=== PATIENT | male | born 1955 | race Caucasian/White ===

== ENCOUNTER 2024-08-23 08:16 | Day surgery (SDC) | payer OTHER ==
[2024-08-23] VITALS (10 sets, daily range): BP systolic 113–153; BP diastolic 56–92
[~2024-08-23] VITALS: Ht 167.6 cm; Wt 72.6 kg
[~2024-08-23 08:16] MED LIST: ACULAR5 ML; AMLO10 PO; ASPI81CH PO; ATOR80 PO; CARV3.125 PO; CELE200 PO; CLOP75 PO; DOCU100 PO; ENAL20; GLIP5ER PO; HYDACE5 PO; HYDCHL25 PO; LEVSOD25 PO; LISI20; LISI20 PO; Lisinopril-Hct1 EAC4 PO; MULVITMINF PO; OMEG1CAP30 PO; OMEP10ER PO; POLTRIOPSO OS; PRAZ2 PO; PRED FORTE5 ML BOTHEYES; PREG150 PO; SIMV80 PO; VARE1; Vitamin D1000 UNI1 PO
[2024-08-23] MEDS ORDERED: NS 1,000 ML IV ONE ×2 (09:11→09:12)
[2024-08-23] MEDS ORDERED: Nitroglycerin 2 MG/20 ML BTL ONE (09:11)
[2024-08-23] MEDS ORDERED: NS 500 ML IV ONE (09:11)
[2024-08-23] MEDS ORDERED: Heparin Sodium 1000 Units/ML 10ML MDV ONE ×2 (09:11→09:12)
[2024-08-23] MEDS ORDERED: FentaNYL Citrate 50 MCG/ML 2 ML Injection ONE (09:22)
[2024-08-23] MEDS ORDERED: Midazolam HCl 1MG / ML 2ML Vial ONE ×2 (09:22)
[2024-08-23] MEDS ORDERED: NS 100 ML IV ONE ×2 (11:05→11:11)
[2024-08-23] MEDS ORDERED: CeFAZolin Sodium 2,000 MG VIAL ONE (11:11)
[2024-08-23] MEDS ORDERED: Protamine Sulfate 50 MG Amp ONE ×2 (11:27→11:39)
--- NOTE | 2024-08-23 12:10 | NUR ---
PT BACK TO RECOVERY ROOM. SITTING UP IN RECLINER. PT GIVEN COFFEE AND SNACKS.ALERT AND ORIENTED X4. DRESSING TO L UPPPER ARM IS C/D/I. NO HEMATOMA.
--- NOTE | 2024-08-23 12:30 | NUR ---
PT GIVEN MORE SNACKS. UP TO BR, AMBUALTES WITHOUT DIFFICULTY.
--- NOTE | 2024-08-23 13:43 | NUR ---
PT VERBALIZE D/C INSTRUCTIONS. CALLS FATHER TO PICK HIM UP. PT DEMONSTRATES UNDERSTANDING OF L ARM PRECAUTIONS. IV D/C CATHETER INTACT.
--- NOTE | 2024-08-23 13:54 | NUR ---
PT WHEELED OUT OF DEPT. D/C FOLDER IN HANDS.
== END 2024-08-23 15:17 | disposition home or self-care (01) ==
LOC: MHTC 08:16
DX: I73.9 Peripheral vascular disease, unspecified (principal); I10 Essential (primary) hypertension; I25.2 Old myocardial infarction; F17.210 Nicotine dependence, cigarettes, uncomplicated; Z79.82 Long term (current) use of aspirin; Z79.1 Long term (current) use of non-steroidal anti-inflammatories (NSAID); Z79.02 Long term (current) use of antithrombotics/antiplatelets; Z79.899 Other long term (current) drug therapy; Z88.8 Allergy status to other drugs, medicaments and biological substances; Z86.73 Personal history of transient ischemic attack (TIA), and cerebral infarction without residual deficits
CPT/HCPCS: 37225; 75716; 75774; 76937; 99152; 99153; C1714; C1725; C1769; C1884; C1887; C1894; J0690; J1644; J2250; J2720; J3010; J7030; J7050; Q9967

== ENCOUNTER 2024-10-11 11:41 | Inpatient (IN) | payer OTHER ==
[~2024-10-11] VITALS: Ht 167.6 cm; Wt 72.6 kg
[~2024-10-11 11:41] MED LIST changes: -Lisinopril-Hct1 EAC4 PO; +ZESTORETIC 20-121 EA PO
[2024-10-11] MEDS ORDERED: Albuterol 2.5 MG/3 ML VIAL INH SCH (11:55)
[2024-10-11 12:22] LABS: BASOPHILS ABSOLUTE AUTO 0.03 K/mm3 (0.00-0.23); BASOPHILS PERCENT AUTO 0 % (0-2); EOSINOPHILS PERCENT AUTO 0 % (0-6); Hematocrit 42.5 % (37.0-53.0); Mean Corpuscular HGB 29.4 pg (26.0-34.0); Mean Corpuscular HGB Conc 32.9 g/dL (31.5-36.5); Mean Corpuscular Volume 89 fL (80-100); Mean Platelet Volume 11.8 fL (9.1-12.4); Platelet Count 117 K/mm3 (150-400); RDW Coefficient Variation 14.3 % (11.7-14.2); RDW Standard Deviation 46.9 fL (35.1-46.3); Red Blood Cell Count 4.77 M/mm3 (4.30-5.90); White Blood Cell Count 9.16 K/mm3 (4.00-11.30)
[2024-10-11 12:27] LABS: IMMATURE GRAN ABSOLUTE AUTO 0.07 K/mm3 (0.00-0.10); IMMATURE GRAN PERCENT AUTO 1 % (0-1); LYMPHOCYTES ABSOLUTE AUTO 1.37 K/mm3 (0.84-5.20); LYMPHOCYTES PERCENT AUTO 15 % (21-46); MONOCYTES ABSOLUTE AUTO 1.17 K/mm3 (0.16-1.47); MONOCYTES PERCENT AUTO 13 % (4-13); NEUTROPHILS ABSOLUTE AUTO 6.52 K/mm3 (1.96-9.15); NEUTROPHILS PERCENT AUTO 71 % (41-73)
[2024-10-11 12:32] LABS: Base Excess Venous 2.4 mmol/L; Bicarbonate Venous 25.2 mmol/L (24.0-30.0); PCO2 Venous 53.4 mmHg (38-42); pH Blood Venous 7.33 (7.34-7.37)
[2024-10-11 12:43] LABS: Albumin, Blood 3.2 g/dL (3.4-5.0); Albumin/Globulin Ratio 0.7 (0.8-1.8); Bilirubin, Total 0.5 mg/dL (0.1-1.0); Calcium, Blood 8.7 mg/dL (8.5-10.1); Creatinine, Blood 1.11 mg/dL (0.60-1.20); Globulin, Blood 4.5 g/dL (2.2-4.0); Magnesium, Blood 2.9 mg/dL (1.6-2.4); Potassium, Blood 4.1 mmol/L (3.5-5.5); Total Protein, Blood 7.7 g/dL (6.4-8.2)
[2024-10-11 12:50] LABS: BAND PERCENT MAN 3 % (0-8); BASOPHILS PERCENT MAN 0 % (0-2); EOSINOPHILS PERCENT MAN 0 % (0-6); LYMPHOCYTES % ATYPICAL MANUAL 1 % (0-0); LYMPHOCYTES PERCENT MAN 10 % (21-46); MONOCYTES ABSOLUTE MAN 1.19 K/mm3 (0.16-1.47); MONOCYTES PERCENT MAN 13 % (4-13); NEUTROPHILS ABSOLUTE MAN 6.96 K/mm3 (1.96-9.15); SEG NEUTROPHILS PERCENT MAN 73 % (41-73); TOTAL CELLS COUNTED 100
[2024-10-11 12:56] LABS: Influenza B, PCR NEGATIVE (NEGATIVE); Resp Syncytial Virus, PCR NEGATIVE (NEGATIVE); SARS-Cov-2 (COVID-19) PCR, MMC NEGATIVE (NEGATIVE)
[2024-10-11 13:01] LABS: Influenza A, PCR POSITIVE (NEGATIVE)
[2024-10-11] MEDS ORDERED: MethylPREDNISolone Sod Succ 125 MG Vial IV ONE (13:35)
[2024-10-11] MEDS ORDERED: Ipratropium/Albuterol SulF 2.5-0.5MG/3 ML Amp INH SCH (14:00)
[2024-10-11] MEDS ORDERED: FLU VACC TS2024-25(6MOS UP)/PF 45 MCG/0.5 ML SYRINGE IM SCH (14:00)
[2024-10-11] MEDS ORDERED: Albuterol 2.5 MG/3 ML VIAL INH PRN (14:10)
[2024-10-11] MEDS ORDERED: Benzonatate 100 MG Cap PO PRN (14:10)
[2024-10-11] MEDS ORDERED: Piperacillin/Tazobactam Sod 3.375 GM in NS 100 ML IV SCH (16:00)
[2024-10-11] MEDS ORDERED: Carvedilol 3.125 MG Tab PO SCH (17:00)
[2024-10-11] MEDS ORDERED: Azithromycin 250 MG Tab PO SCH (18:00)
[2024-10-11] MEDS ORDERED: NS 250 ML IV PRN ×2 (18:25→20:50)
[2024-10-11] MEDS ORDERED: MethylPREDNISolone Sod Succ 40 MG VIAL IV SCH (18:30)
[2024-10-11 18:50] VITALS: BP 124/69
--- NOTE | 2024-10-11 19:23 | NUR ---
NOTE PT A&OX4, BUT REPEATING HIMSELF. PT ON 8L VIA OX MASK. SPO2 IS 91%. GAVE REPORT TO NIGHT NURSE, LET NIGHT RN KNOW WAS UNABLE TO DO ADMISSION ASSESSMENT. DID QUICK 2RN CHECK WITH STEVE, PT HAS SOME REDDNESS ON BOTTOM, PT REPORTS BEING IN BED FOR A WEEK DUE TO EXAUSTED FROM BEING SICK. PT ON CONT. PULSE OX. PT HAS HUMIDIFIED O2. PT ORIENTED TO CALL LIGHT AND FLOOR. PT STATES BEING DIZZY BUT ABLE TO STAND AND TRANSFER SELF TO BED. PT STATES HAVING LOST PERSONAL ITEMS COMING FROM [facility] CALLED ER, THEY STATED DID NOT HAVE PERSONAL ITEMS OF PT, REPORTED IT TO NIGHT RN. PT ON HEART HEALTHY DIET. PT BED IN LOWEST POSITION. CALL LIGHT IN REACH.
[2024-10-11 19:53] VITALS: BP 108/83
[2024-10-11] MEDS ORDERED: CLOP75 PO (19:58)
[2024-10-11] MEDS ORDERED: OCUFLOX511 BOTHEYES (20:03)
[2024-10-11] MEDS ORDERED: KETO.5OPSO BOTHEYES (20:04)
[2024-10-11] MEDS ORDERED: Docusate Sodium 100 MG Cap PO SCH (21:00)
[2024-10-11] MEDS ORDERED: MethylPREDNISolone Sod Succ 125 MG Vial IV SCH (21:00)
[2024-10-11] MEDS ORDERED: Pregabalin 75 MG Cap PO SCH (21:00)
[2024-10-11] MEDS ORDERED: Celecoxib 100 MG Cap PO SCH (21:00)
[2024-10-11] MEDS ORDERED: Oseltamivir Phosphate 75 MG Cap PO SCH (21:00)
[2024-10-11] MEDS ORDERED: GuaiFENesin 600 MG TabCR PO SCH (21:00)
--- NOTE | 2024-10-11 22:21 | NUR ---
ADMIT NOTE 68 YR OLD MALE WAS ADMITTED TO FLOOR FROM THE ED WITH DX OF ACUTE HYPOXIC RESP FAILURE ON PREVIOUS SHIFT. ALERT AND ORIENTED X 4. COOPERATIVE. LUNG SOUNDS DIMINISHED AND CONGESTED COUGH. WAS PLACED ON DROPLET PRECAUTIONS FOR FLU AND PNA, AM RN REPORTED THAT PT HAD HAD COVID NOT TOO LONG AGO WELL. IV ANTIBIOTICS INFUSING. PT VOICED HE HAD LOST BELONGINGS WHEN BEING [facility]. (AM RN REPORTED SAID BELONGINGS WERE BEING SEARCHED FOR). ORIENTED TO USE OF CALL LIGHT. RAILS UP X 2 AND BED IN LOW POSITION, CALL LIGHT IN REACH FOR SAFETY. WILL CONT TO MONITOR
--- NOTE | 2024-10-12 03:38 | NUR ---
PRESS OPERATOR HELPER SUMMARY VSS. LUNG SOUNDS DIMINISHED TO AUSCULTATION, INTERMITTENT CONGESTED COUGHING. IV ANTIBIOTICS INFUSING. PT ON DROPLET PRECAUTIONS FOR FLU AND PNEUMONIA. TOLERATED PO TAMIFLU TO TREAT THE FLU. HOB ELEVATED FOR RESP COMFORT. ABLE TO REPOSITION SELF IN BED WITHOUT ASSIST. O2 PER MASK AT 5L/MIN. CONT PULSE OX IN USE. HAS BEEN RESTING QUIETLY WITH FEW INTERRUPTIONS SINCE MEDS ADMIN. CALL LIGHT IN REACH, RAILS UP X 2 AND BED IN LOW POSITION FOR SAFETY. WILL CONT TO MONITOR.
[2024-10-12 03:59] VITALS: BP 119/73
[2024-10-12] MEDS ORDERED: Pantoprazole Sodium 20 MG Tab PO SCH (06:00)
[2024-10-12 06:31] LABS: Hematocrit 42.8 % (37.0-53.0); Hemoglobin 13.9 g/dL (13.5-17.5); Mean Corpuscular HGB 29.8 pg (26.0-34.0); Mean Corpuscular HGB Conc 32.5 g/dL (31.5-36.5); Mean Corpuscular Volume 92 fL (80-100); Mean Platelet Volume 12.1 fL (9.1-12.4); Platelet Count 117 K/mm3 (150-400); RDW Coefficient Variation 14.6 % (11.7-14.2); Red Blood Cell Count 4.66 M/mm3 (4.30-5.90)
[2024-10-12 06:50] LABS: Bun/Creatinine Ratio 36.2 (12.0-20.0); Calcium, Blood 8.5 mg/dL (8.5-10.1); Creatinine, Blood 1.16 mg/dL (0.60-1.20); Potassium, Blood 4.5 mmol/L (3.5-5.5)
[2024-10-12 07:29] VITALS: BP 122/65
[2024-10-12] MEDS ORDERED: Clopidogrel Bisulfate 75 MG Tab PO SCH (09:00)
[2024-10-12] MEDS ORDERED: Atorvastatin 40 MG Tab PO SCH (09:00)
[2024-10-12] MEDS ORDERED: Aspirin 81 MG Chew PO SCH (09:00)
[2024-10-12] MEDS ORDERED: Enoxaparin 40 MG/0.4 ML SYR SC SCH (09:00)
[2024-10-12] MEDS ORDERED: HydroCHLOROthiazide 25 mg Tab PO SCH (09:00)
[2024-10-12] MEDS ORDERED: Lisinopril 20 MG Tab PO SCH (09:00)
[2024-10-12] MEDS ORDERED: Cholecalciferol 1000 Unit Tablet (=25MCG) PO SCH (09:00)
[2024-10-12] MEDS ORDERED: AmLODIPine Besylate 5 MG Tab PO SCH (09:00)
[2024-10-12 15:17] VITALS: BP 101/81
[2024-10-12 16:46] VITALS: BP 97/56
[2024-10-12] MEDS ORDERED: Pantoprazole Sodium 20 MG Tab PO ONE (18:10)
--- NOTE | 2024-10-12 18:31 | NUR ---
SHIFT SUMMARY MR ALAN IS OX4, CALLS APPROPRIATELY, APPROPRIATE CONVERSATION. HE WAS CONCERNED ABOUT MISSING PERSONAL BELONGINGS WHICH ARE NOW LOCATED. DRY COUGH. ON 7L HIGH FLOW NC ON CONTINUOUS PULSE OX IN THE LOW 90S. HE IS A SMOKER AND HAS REQUESTED A NICOTENE PATCH, DR SINGH AWARE. C/O GI UPSET, GIVEN PROTONIX PO. NO NAUSEA. REPOSITIONING SELF AT LEAST Q2HRS, PILLOWS PROVIDED. BED LOW, CALL LIGHT IN REACH.
[2024-10-12 19:23] VITALS: BP 84/74
[2024-10-12 21:19] LABS: Base Excess Venous 1.5 mmol/L; Bicarbonate Venous 24.6 mmol/L (24.0-30.0); PCO2 Venous 56.9 mmHg (38-42)
[2024-10-13 05:18] VITALS: BP 111/63
[2024-10-13 05:25] LABS: Hematocrit 39.7 % (37.0-53.0); Hemoglobin 12.8 g/dL (13.5-17.5); Mean Corpuscular HGB 29.6 pg (26.0-34.0); Mean Corpuscular HGB Conc 32.2 g/dL (31.5-36.5); Mean Corpuscular Volume 92 fL (80-100); Mean Platelet Volume 12.5 fL (9.1-12.4); Platelet Count 157 K/mm3 (150-400); RDW Coefficient Variation 14.6 % (11.7-14.2); RDW Standard Deviation 49.6 fL (35.1-46.3); Red Blood Cell Count 4.32 M/mm3 (4.30-5.90); White Blood Cell Count 15.28 K/mm3 (4.00-11.30)
[2024-10-13 05:56] LABS: Bun/Creatinine Ratio 38.5 (12.0-20.0); Calcium, Blood 9.2 mg/dL (8.5-10.1); Creatinine, Blood 1.69 mg/dL (0.60-1.20); Potassium, Blood 4.8 mmol/L (3.5-5.5)
--- NOTE | 2024-10-13 07:20 | NUR ---
SHIFT SUMMARY; PATIENT SLEPT IN SHORT INTERVALS, AWAKE WITH HEARTBURN. AND COUGHING SPELLS. PRN TESSLON PERLS GIVEN. HYPOTENSIVE. UP TO BR W/SB/WW FOR BM. REMAINS IN DROPLET ISLATION.
[2024-10-13 07:55] VITALS: BP 98/57
[2024-10-13] MEDS ORDERED: Furosemide 10 MG / ML 2ML Vial IV SCH (09:00)
[2024-10-13 15:41] VITALS: BP 103/56
[2024-10-13 19:39] VITALS: BP 108/68
[2024-10-14 03:58] VITALS: BP 131/82
[2024-10-14 05:29] LABS: Hematocrit 38.7 % (37.0-53.0); Hemoglobin 12.9 g/dL (13.5-17.5); Mean Corpuscular HGB 29.9 pg (26.0-34.0); Mean Corpuscular HGB Conc 33.3 g/dL (31.5-36.5); Mean Corpuscular Volume 90 fL (80-100); Platelet Count 178 K/mm3 (150-400); RDW Coefficient Variation 14.7 % (11.7-14.2); Red Blood Cell Count 4.32 M/mm3 (4.30-5.90); White Blood Cell Count 15.65 K/mm3 (4.00-11.30)
--- NOTE | 2024-10-14 05:52 | NUR ---
INTENSIVE CARE MEDICINE SPECIALIST SUMMARY PT A/OX4. ABLE TO MAKE NEEDS KNOWN. PT VERBALLY EXPRESSING HE WANTS TO GO HOME. RT TITRATED OXYGEN DOWN TO 4LPM AT START OF SHIFT. PT TOLERATED T/O THE NIGHT, SATURATIONS AVERAGED BETWEEN 88-92%; BRIEF DIPS TO 86% WITH ACTIVITY. NO ACUTE CHANGES. PT HAS BEEN WAKEFUL T/O THE NIGHT. CALL LIGHT ACCESSIBLE. CARE WILL CONTINUE UNTIL REPORT GIVEN TO ONCOMING NURSE.
[2024-10-14 05:57] LABS: Bun/Creatinine Ratio 46.4 (12.0-20.0); Calcium, Blood 9.1 mg/dL (8.5-10.1); Creatinine, Blood 1.12 mg/dL (0.60-1.20); Magnesium, Blood 2.4 mg/dL (1.6-2.4); Phosphorus, Blood 1.9 mg/dL (2.5-4.9); Potassium, Blood 4.4 mmol/L (3.5-5.5)
[2024-10-14 07:15] VITALS: BP 134/77
[2024-10-14] MEDS ORDERED: Amoxicillin/Clavulanate K 875 MG Tab PO SCH (09:00)
[2024-10-14] MEDS ORDERED: ALBU90OI INH (13:09)
[2024-10-14] MEDS ORDERED: AMOCLA875 PO (13:10)
[2024-10-14] MEDS ORDERED: AZIT500 PO (13:11)
[2024-10-14] MEDS ORDERED: FLUTICASONE-SA1 EAC1 INH (13:12)
[2024-10-14] MEDS ORDERED: OSEL75CA PO (13:13)
[2024-10-14] MEDS ORDERED: KETO.5OPSO BOTHEYES (13:13)
[2024-10-14] MEDS ORDERED: PRED20 (13:15)
--- NOTE | 2024-10-14 15:22 | NUR ---
DISCHARGE SUMMARY PT DC THIS SHIFT DC INSTRUCTION GONE OVER WITH PT AND PT FATHER. WHOM STATED UNDERSTANDING. PT DC HOME WITH HOME HEALTH AND OXYGEN. PT ESCORTED OUT TO PRIVATE VEHICLE VIA WHEELCHAIR BY TJ
== END 2024-10-14 15:12 | disposition home health service (06) | DRG 871 ==
LOC: ER 11:41 → MEDS 13:55 → ERHOLD 13:55 → MEDS 18:43
PROVIDERS: Emergency Medicine; Hospitalist; ADMIT Internal Medicine
DX: A41.9 Sepsis, unspecified organism (principal); J10.08 Influenza due to other identified influenza virus with other specified pneumonia; J18.9 Pneumonia, unspecified organism; J69.0 Pneumonitis due to inhalation of food and vomit; J96.01 Acute respiratory failure with hypoxia; J44.0 Chronic obstructive pulmonary disease with (acute) lower respiratory infection; J44.1 Chronic obstructive pulmonary disease with (acute) exacerbation; E87.1 Hypo-osmolality and hyponatremia; I69.354 Hemiplegia and hemiparesis following cerebral infarction affecting left non-dominant side; R65.20 Severe sepsis without septic shock; I12.9 Hypertensive chronic kidney disease with stage 1 through stage 4 chronic kidney disease, or unspecified chronic kidney disease; K21.9 Gastro-esophageal reflux disease without esophagitis; I25.10 Atherosclerotic heart disease of native coronary artery without angina pectoris; G89.4 Chronic pain syndrome; E55.9 Vitamin D deficiency, unspecified; I73.9 Peripheral vascular disease, unspecified; N18.30 Chronic kidney disease, stage 3 unspecified; E78.5 Hyperlipidemia, unspecified; R79.1 Abnormal coagulation profile; Z96.641 Presence of right artificial hip joint; F17.210 Nicotine dependence, cigarettes, uncomplicated; Z88.8 Allergy status to other drugs, medicaments and biological substances; I69.311 Memory deficit following cerebral infarction; Z86.16 Personal history of COVID-19; Z79.82 Long term (current) use of aspirin; Z79.02 Long term (current) use of antithrombotics/antiplatelets; Z79.1 Long term (current) use of non-steroidal anti-inflammatories (NSAID); Z95.820 Peripheral vascular angioplasty status with implants and grafts; I25.2 Old myocardial infarction; Z87.820 Personal history of traumatic brain injury; Z60.2 Problems related to living alone
CPT/HCPCS: 0241U; 36415; 71045; 71260; 80048; 80053; 82803; 83605; 83735; 83880; 84100; 84145; 84484; 85025; 85027; 85379; 87040; 92610; 93005; 93010; 94640; 94644; 94664; 94760; 94761; 94762; 97110; 97116; 97161; 97165; 99285-25; A9270; J1650; J1940; J2470; J2543; J2919; J7050; Q9967

== ENCOUNTER 2025-01-19 10:40 | Inpatient (IN) | payer OTHER ==
[~2025-01-19] VITALS: Ht 167.6 cm; Wt 68.4 kg
[~2025-01-19 10:40] MED LIST changes: +ALBU90OI INH; +AMOCLA875 PO; +AZIT500 PO; +FLUTICASONE-SA1 EAC1 INH; +KETO.5OPSO BOTHEYES; +OCUFLOX511 BOTHEYES; +OSEL75CA PO; +PRED20
[2025-01-19] MEDS ORDERED: Ipratropium Bromide INH 0.02% 0.5 mg/2.5ML Vial INH SCH (11:05)
[2025-01-19] MEDS ORDERED: Albuterol 2.5 MG/3 ML VIAL INH SCH (11:05)
[2025-01-19 11:15] LABS: BASOPHILS ABSOLUTE AUTO 0.07 K/mm3 (0.00-0.23); BASOPHILS PERCENT AUTO 0 % (0-2); EOSINOPHILS ABSOLUTE AUTO 0.09 K/mm3 (0.00-0.68); EOSINOPHILS PERCENT AUTO 1 % (0-6); Hematocrit 48.1 % (37.0-53.0); Hemoglobin 15.6 g/dL (13.5-17.5); IMMATURE GRAN ABSOLUTE AUTO 0.09 K/mm3 (0.00-0.10); IMMATURE GRAN PERCENT AUTO 1 % (0-1); LYMPHOCYTES ABSOLUTE AUTO 2.01 K/mm3 (0.84-5.20); LYMPHOCYTES PERCENT AUTO 12 % (21-46); MONOCYTES ABSOLUTE AUTO 1.68 K/mm3 (0.16-1.47); MONOCYTES PERCENT AUTO 10 % (4-13); Mean Corpuscular HGB 30.1 pg (26.0-34.0); Mean Corpuscular HGB Conc 32.4 g/dL (31.5-36.5); Mean Corpuscular Volume 93 fL (80-100); Mean Platelet Volume 11.2 fL (9.1-12.4); NEUTROPHILS ABSOLUTE AUTO 12.31 K/mm3 (1.96-9.15); NEUTROPHILS PERCENT AUTO 76 % (41-73); Platelet Count 201 K/mm3 (150-400); RDW Coefficient Variation 13.8 % (11.7-14.2); RDW Standard Deviation 46.8 fL (35.1-46.3); Red Blood Cell Count 5.19 M/mm3 (4.30-5.90); White Blood Cell Count 16.25 K/mm3 (4.00-11.30)
[2025-01-19 11:38] LABS: Influenza A, PCR NEGATIVE (NEGATIVE); Influenza B, PCR NEGATIVE (NEGATIVE); Resp Syncytial Virus, PCR NEGATIVE (NEGATIVE); SARS-Cov-2 (COVID-19) PCR, MMC NEGATIVE (NEGATIVE)
[2025-01-19] MEDS ORDERED: MethylPREDNISolone Sod Succ 125 MG Vial IV ONE (12:50)
[2025-01-19 13:56] LABS: Albumin, Blood 3.6 g/dL (3.4-5.0); Albumin/Globulin Ratio 0.8 (0.8-1.8); Bilirubin, Total 0.4 mg/dL (0.1-1.0); Bun/Creatinine Ratio 24.6 (12.0-20.0); Calcium, Blood 9.5 mg/dL (8.5-10.1); Creatinine, Blood 0.98 mg/dL (0.60-1.20); Globulin, Blood 4.3 g/dL (2.2-4.0); Potassium, Blood 4.4 mmol/L (3.5-5.5); Total Protein, Blood 7.9 g/dL (6.4-8.2)
[2025-01-19] MEDS ORDERED: Ondansetron 4 MG TAB PO PRN (15:40)
[2025-01-19] MEDS ORDERED: Magnesium Hydroxide Conc 10 ML UDC PO PRN (15:40)
[2025-01-19] MEDS ORDERED: TraZODone HCl 50 MG Tab PO PRN (15:40)
[2025-01-19] MEDS ORDERED: Lactated Ringer's 1,000 ML IV SCH (15:40)
[2025-01-19] MEDS ORDERED: Bisacodyl 10 MG Supp PR PRN (15:45)
[2025-01-19] MEDS ORDERED: Albuterol 2.5 MG/3 ML VIAL INH PRN (15:45)
[2025-01-19] MEDS ORDERED: Ipratropium/Albuterol SulF 2.5-0.5MG/3 ML Amp INH SCH (15:45)
[2025-01-19] MEDS ORDERED: NS 1,000 ML IV SCH (15:50)
[2025-01-19] MEDS ORDERED: Mometasone/Formoterol MDI 200/5 mcg 13 GM INH SCH (15:55)
[2025-01-19] MEDS ORDERED: CefTRIAXone Sodium 2,000 MG in NS 100 ML IV SCH (16:00)
[2025-01-19] MEDS ORDERED: Carvedilol 3.125 MG Tab PO SCH (17:00)
[2025-01-19 18:12] VITALS: BP 143/65
[2025-01-19] MEDS ORDERED: Benzonatate 100 MG Cap PO PRN (18:35)
[2025-01-19 19:30] VITALS: BP 128/64
[2025-01-19] MEDS ORDERED: Pregabalin 75 MG Cap PO SCH (21:00)
[2025-01-19] MEDS ORDERED: Lactobacil 2-S.Thermo-Bifido 1 1 Cap PO SCH (21:00)
[2025-01-19] MEDS ORDERED: Famotidine 20 MG Tab PO SCH (21:00)
[2025-01-19] MEDS ORDERED: Montelukast Sodium 10 MG Tab PO SCH (21:00)
[2025-01-19] MEDS ORDERED: Nicotine 21 MG PATCH TOP SCH (21:00)
[2025-01-19] MEDS ORDERED: Docusate Sodium 100 MG Cap PO SCH (21:00)
[2025-01-19] MEDS ORDERED: MethylPREDNISolone Sod Succ 125 MG Vial IV SCH (22:00)
[2025-01-20 02:56] VITALS: BP 127/72
--- NOTE | 2025-01-20 04:02 | NUR ---
SHIFT SUMMARY PATIENT HAD NO ACUTE CHANGES. ALERT ORIENTED AND SBA TO BSC. SOB W/EXERTION. ON 4L O2 NC AND RA BASELINE. PIV INTACT. NS INFUSING @ 100 mL/HR X ONE BAG. TESSALON 100 MG GIVEN FOR COUGH WITH GOOD EFFECT. DENIES CHEST PAIN AND N/V. RT IN FOR BREATHING TX. CALL LIGHT IN REACH. BED IN LOWEST POSITION. WILL CONTINUE TO MONITOR UNTIL DAY SHIFT NURSE ASSUMES CARE
[2025-01-20 05:52] LABS: Hematocrit 42.9 % (37.0-53.0); Hemoglobin 13.7 g/dL (13.5-17.5); Mean Corpuscular HGB 29.5 pg (26.0-34.0); Mean Corpuscular HGB Conc 31.9 g/dL (31.5-36.5); Mean Corpuscular Volume 93 fL (80-100); Mean Platelet Volume 11.3 fL (9.1-12.4); Platelet Count 178 K/mm3 (150-400); RDW Coefficient Variation 13.8 % (11.7-14.2); RDW Standard Deviation 46.6 fL (35.1-46.3); Red Blood Cell Count 4.64 M/mm3 (4.30-5.90); White Blood Cell Count 12.24 K/mm3 (4.00-11.30)
[2025-01-20 06:19] LABS: Albumin, Blood 2.8 g/dL (3.4-5.0); Albumin/Globulin Ratio 0.8 (0.8-1.8); Bilirubin, Total 0.2 mg/dL (0.1-1.0); Bun/Creatinine Ratio 29.4 (12.0-20.0); Calcium, Blood 8.9 mg/dL (8.5-10.1); Creatinine, Blood 0.78 mg/dL (0.60-1.20); Globulin, Blood 3.7 g/dL (2.2-4.0); Magnesium, Blood 2.2 mg/dL (1.6-2.4); Potassium, Blood 4.3 mmol/L (3.5-5.5); Total Protein, Blood 6.5 g/dL (6.4-8.2)
[2025-01-20 07:43] VITALS: BP 128/71
[2025-01-20] MEDS ORDERED: Aspirin 81 MG Chew PO SCH (09:00)
[2025-01-20] MEDS ORDERED: AmLODIPine Besylate 5 MG Tab PO SCH (09:00)
[2025-01-20] MEDS ORDERED: Clopidogrel Bisulfate 75 MG Tab PO SCH (09:00)
[2025-01-20] MEDS ORDERED: Enoxaparin 40 MG/0.4 ML SYR SC SCH (09:00)
[2025-01-20] MEDS ORDERED: Atorvastatin 40 MG Tab PO SCH (09:00)
--- NOTE | 2025-01-20 10:46 | NUR ---
AM NOTE: PATIENT A/OX4, MAKE NEEDS KNOWN, PLEASANT AND COOPERATIVE c CARE. PATIENT ON MINCED AND MOIST DIET. PATIENT REPORTS HX OF CVA, HE HAS BEEN EATING REGULAR TEXTURE DIET AT HOME c NO PROBLEM SWALLOWING HIS FOOD. PATIENT EXPRESSESS HE DOES NOT LIKE HIS CURRENT TEXTURE DIET HERE IN THE HOSPITAL AND REQUESTING CHANGED TO REGULAR DIET TEXTURE. NOTIFIED DR. TOÑO barriga PATIENT REQUEST. RECEIVED ORDER FOR ST COLT.
[2025-01-20 14:52] VITALS: BP 137/62
[2025-01-20 17:30] VITALS: BP 140/65
[2025-01-20] MEDS ORDERED: NS 250 ML IV PRN (17:55)
--- NOTE | 2025-01-20 18:49 | NUR ---
SHIFT SUMMARY: NO ACUTE CHANGES T/O THIS SHIFT. PATIENT IS A&OX4, CALM, PLEASANT AND COOPERATIVE c CARE. PATIENT VERBALIZES NEEDS AND CALLS APPROPRIATELY. PATIENT REPORTS NO DIZZINESS OR HEADACHES EVEN WHEN AMBULATING. PATIENT NOT ON TELE, DENIES CHEST PAIN/PRESSURE. PATIENT IS ON 4 LITERS NC AND IS SATTING BETWEEN 89-92%. PATIENT HAS A PRODUCTIVE COUGH AND IS COUGHING UP SMALL AMOUNT OF MUCUS. TOLERATES REGULAR DIET. PATIENT IS CONTINENT OF BLADDER/BOWEL, REPORTS NO DISCOMFORT OR PAIN IN ABDOMEN. PATIENT DENIES N/V, AND LAST BM WAS TODAY AFTER HIS SHOWER. PATIENT AMBULATES TO [facility] A [facility]BA DUE TO DYSPNEA W/EXERTION. L AC INFUSING ABX, SCHEDULED MEDS GIVEN PER EMAR. BED IN LOWEST POSITION AND CALL LIGHT IN REACH.
[2025-01-20 19:17] VITALS: BP 123/59
[2025-01-21 04:12] VITALS: BP 134/81
--- NOTE | 2025-01-21 05:26 | NUR ---
SHIFT SUMMARY PT WEANED FROM 4LNC TO 2LNC. CONTINUOUS PULSE OX IN PLACE WITH O2 SATS WNL. PT WITH HACKING COUGH, STILL NEED SPUTUM SAMPLE. PT SOB WITH ACTIVITY, BUT STATES HE FEELS IMPROVED SINCE ADMIT. PT SLEPT INTERMITTENTLY DURING THE NIGHT. BED IN LOWEST POSITION, CALL LIGHT WITHIN REACH, SIDERAILS UP X2.
[2025-01-21 05:52] LABS: BASOPHILS ABSOLUTE AUTO 0.05 K/mm3 (0.00-0.23); BASOPHILS PERCENT AUTO 0 % (0-2); EOSINOPHILS PERCENT AUTO 0 % (0-6); Hematocrit 41.5 % (37.0-53.0); Hemoglobin 13.3 g/dL (13.5-17.5); IMMATURE GRAN ABSOLUTE AUTO 0.44 K/mm3 (0.00-0.10); IMMATURE GRAN PERCENT AUTO 2 % (0-1); LYMPHOCYTES ABSOLUTE AUTO 1.07 K/mm3 (0.84-5.20); LYMPHOCYTES PERCENT AUTO 5 % (21-46); MONOCYTES ABSOLUTE AUTO 0.78 K/mm3 (0.16-1.47); MONOCYTES PERCENT AUTO 4 % (4-13); Mean Corpuscular HGB 30.2 pg (26.0-34.0); Mean Corpuscular Volume 94 fL (80-100); Mean Platelet Volume 11.1 fL (9.1-12.4); NEUTROPHILS ABSOLUTE AUTO 18.78 K/mm3 (1.96-9.15); NEUTROPHILS PERCENT AUTO 89 % (41-73); Platelet Count 227 K/mm3 (150-400); RDW Coefficient Variation 13.8 % (11.7-14.2); RDW Standard Deviation 48.1 fL (35.1-46.3); White Blood Cell Count 21.12 K/mm3 (4.00-11.30)
[2025-01-21 06:13] LABS: Calcium, Blood 9.1 mg/dL (8.5-10.1); Creatinine, Blood 0.91 mg/dL (0.60-1.20); Potassium, Blood 4.8 mmol/L (3.5-5.5)
[2025-01-21 07:40] VITALS: BP 160/79
[2025-01-21 15:22] VITALS: BP 140/73
--- NOTE | 2025-01-21 18:25 | NUR ---
SHIFT SUMMARY PT A&OX4. PT ADMITTED DUE TO ACUTE HYPOXIC RESP FAILURE. PT HAS PRODUCTIVE COUGH. PT RECEIVED DOSE OF TESSLON PRN FOR COUGH. SPUTUM COLLECTION COLLECTED AND PENDING RESULTS. RESPIRATORY THERAPY INVOLVED IN CARE. PT HAS CONT PULSE OX ON. SATS ARE 90% ON 1L OF O2 VIA N/C. ORAL CARE COMPLETE. VSS. PT GOT IV ANTIBIOTIC. PT UPRIGHT FOR PO INTAKE. PT EDUCATED ON INCENTIVE SPIROMETER USE. PT PERFORMED PROPER USE OF INCENTIVE SPIROMETER. INCENTIVE SPIROMETER AT BEDSIDE. PT IN BED, BED IN LOWEST POSITION, CALL LIGHT IN REACH. VSS.
[2025-01-21 19:40] VITALS: BP 136/72
[2025-01-21] MEDS ORDERED: MethylPREDNISolone Sod Succ 125 MG Vial IV SCH (21:00)
[2025-01-22] MEDS ORDERED: Saline Nasal Spray 45 ML PRN (00:15)
[2025-01-22 03:55] VITALS: BP 138/78
--- NOTE | 2025-01-22 05:43 | NUR ---
SHIFT SUMMARY PT SLEPT POORLY THIS SHIFT. O2 NEEDS INCREASED AT START OF SHIFT- O2 INCREASED FROM 1 TO 3L NC AT 2100. ABLE TO WEAN PT BACK TO 1 LITER DURING THE NIGHT. PT C/O NASAL CONGESTION- ORDER RECEIVED FOR SALINE NASAL SPRAY, MEDICATED PER EMAR. HACKING COUGH CONTINUES- TESSLON MARCO GIVEN PER EMAR. BED IN LOWEST POSITION, CALL LIGHT WITHIN REACH, SIDERAILS UP X2.
[2025-01-22 08:05] VITALS: BP 153/77
[2025-01-22] MEDS ORDERED: Metoprolol Succinate 25 MG TABCR PO SCH (09:00)
[2025-01-22] MEDS ORDERED: Lisinopril 20 MG Tab PO SCH (13:00)
[2025-01-22] MEDS ORDERED: Metoprolol Succinate 25 MG TABCR PO ONE (13:00)
[2025-01-22 13:53] VITALS: BP 132/63
[2025-01-22 15:48] VITALS: BP 124/78
[2025-01-22] MEDS ORDERED: CefTRIAXone Sodium 1,000 MG in NS 100 ML IV SCH (18:00)
[2025-01-22 19:11] VITALS: BP 110/71
--- NOTE | 2025-01-22 19:29 | NUR ---
SHIFT SUMMARY PT A&OX4 PT ADMITTED DUE TO ACUTE HYPOXIC RESP FAILURE. PT HAS PRODUCTIVE COUGH, PT REPORTS NO PAIN. RESPIRATORY THERAPY INVOLVED IN CARE. PT HAS CONT PULSE OX ON. PT ON 1L ON O2 VIA N/C SPO2 91%. ORAL CARE COMPLETE. VSS. PT GOT IV ANTIBIOTIC. PT UPRIGHT FOR PO INTAKE.INCENTIVE SPIROMETER AT BEDSIDE. PT IN BED, BED IN LOWEST POSITION, CALL LIGHT IN REACH, PLAN FOR OXIMETER (SLEEP) ORDERED TONIGHT.
[2025-01-23 02:57] VITALS: BP 140/67
--- NOTE | 2025-01-23 05:47 | NUR ---
SHIFT SUMMARY PT WEANED FROM 1L TO RA PER RESPIRATORY THERAPY WHEN STARTING SLEEP STUDY. PT DENIES FEELING SOB. SLEPT INTERMITTENTLY DURING SLEEP STUDY. LUNGS CONTINUE TO HAVE EXP WHEEZES, BUT COUGH IS LESS FREQUENT TONIGHT. BED IN LOWEST POSITION, CALL LIGHT WITHIN REACH, SIDERAILS UP X2.
[2025-01-23 06:23] LABS: BASOPHILS ABSOLUTE AUTO 0.12 K/mm3 (0.00-0.23); BASOPHILS PERCENT AUTO 1 % (0-2); EOSINOPHILS PERCENT AUTO 0 % (0-6); Hematocrit 44.8 % (37.0-53.0); Hemoglobin 14.1 g/dL (13.5-17.5); IMMATURE GRAN ABSOLUTE AUTO 1.36 K/mm3 (0.00-0.10); IMMATURE GRAN PERCENT AUTO 7 % (0-1); LYMPHOCYTES ABSOLUTE AUTO 1.53 K/mm3 (0.84-5.20); LYMPHOCYTES PERCENT AUTO 7 % (21-46); MONOCYTES ABSOLUTE AUTO 0.88 K/mm3 (0.16-1.47); MONOCYTES PERCENT AUTO 4 % (4-13); Mean Corpuscular HGB 29.7 pg (26.0-34.0); Mean Corpuscular HGB Conc 31.5 g/dL (31.5-36.5); Mean Corpuscular Volume 95 fL (80-100); Mean Platelet Volume 10.7 fL (9.1-12.4); NEUTROPHILS ABSOLUTE AUTO 17.07 K/mm3 (1.96-9.15); NEUTROPHILS PERCENT AUTO 81 % (41-73); Platelet Count 245 K/mm3 (150-400); RDW Coefficient Variation 14.1 % (11.7-14.2); RDW Standard Deviation 49.6 fL (35.1-46.3); Red Blood Cell Count 4.74 M/mm3 (4.30-5.90); White Blood Cell Count 20.96 K/mm3 (4.00-11.30)
[2025-01-23 06:43] LABS: BAND PERCENT MAN 4 % (0-8); BASOPHILS PERCENT MAN 0 % (0-2); Bun/Creatinine Ratio 30.7 (12.0-20.0); Calcium, Blood 9.5 mg/dL (8.5-10.1); Creatinine, Blood 0.85 mg/dL (0.60-1.20); EOSINOPHILS PERCENT MAN 0 % (0-6); LYMPHOCYTES ABSOLUTE MAN 1.46 K/mm3 (0.84-5.20); LYMPHOCYTES PERCENT MAN 7 % (21-46); METAMYELOCYTE ABSOLUTE MAN 0.41 K/mm3 (0.00-0.00); METAMYELOCYTE PERCENT MAN 2 % (0-0); MONOCYTES ABSOLUTE MAN 1.88 K/mm3 (0.16-1.47); MONOCYTES PERCENT MAN 9 % (4-13); NEUTROPHILS ABSOLUTE MAN 17.18 K/mm3 (1.96-9.15); SEG NEUTROPHILS PERCENT MAN 78 % (41-73); TOTAL CELLS COUNTED 100
[2025-01-23 07:19] VITALS: BP 143/91
[2025-01-23 07:21] VITALS: BP 128/92
[2025-01-23] MEDS ORDERED: PredniSONE 20 MG Tab PO SCH (09:00)
[2025-01-23] MEDS ORDERED: MetFORMIN HCl 500 mg PO SCH (09:00)
[2025-01-23] MEDS ORDERED: Metoprolol Succinate 50 MG TABCR PO SCH (09:00)
[2025-01-23] MEDS ORDERED: HydroCHLOROthiazide 25 mg Tab PO SCH ×2 (09:00)
[2025-01-23] MEDS ORDERED: BENZ100A PO (12:01)
[2025-01-23] MEDS ORDERED: FAMO20 PO (12:01)
[2025-01-23] MEDS ORDERED: MONT10T PO (12:02)
[2025-01-23] MEDS ORDERED: METO50ER PO (12:02)
[2025-01-23] MEDS ORDERED: VISBIOME 112.51 EACH PO (12:03)
[2025-01-23] MEDS ORDERED: NASAL SPRAY88 ML (12:03)
[2025-01-23] MEDS ORDERED: AMOCLA500 PO (12:03)
[2025-01-23] MEDS ORDERED: METF500C PO (12:04)
[2025-01-23] MEDS ORDERED: PRED20 PO (12:06)
--- NOTE | 2025-01-23 12:46 | NUR ---
DISCHARGE SUMMARY PT DISCHARGED HOME. HOME O2 EVAL COMPLETED - PT DOES NOT QUALIFY/NEED SUPPLEMENTAL O2. NEW RX [facility]. DISCHARGE PACKET AND NEW MEDICATIONS REVIEWED WITH PT. PT AMBULATED INDEPENDENTLY TO PRIVATE VEHICLE DRIVEN BY HIS FATHER WHO CAME TO PICK HIM UP. IV REMOVED, SITE APPEARS WNL.
== END 2025-01-23 12:32 | disposition home or self-care (01) | DRG 189 ==
LOC: ER 10:40 → MEDS 15:36
PROVIDERS: Internal Medicine; Physician Assistant; ADMIT Hospitalist
DX: J96.01 Acute respiratory failure with hypoxia (principal); J44.1 Chronic obstructive pulmonary disease with (acute) exacerbation; I12.9 Hypertensive chronic kidney disease with stage 1 through stage 4 chronic kidney disease, or unspecified chronic kidney disease; N18.30 Chronic kidney disease, stage 3 unspecified; M54.50 Low back pain, unspecified; E78.5 Hyperlipidemia, unspecified; M50.30 Other cervical disc degeneration, unspecified cervical region; M19.90 Unspecified osteoarthritis, unspecified site; M54.30 Sciatica, unspecified side; K21.9 Gastro-esophageal reflux disease without esophagitis; K57.90 Diverticulosis of intestine, part unspecified, without perforation or abscess without bleeding; Z96.641 Presence of right artificial hip joint; Z96.621 Presence of right artificial elbow joint; R41.3 Other amnesia; E11.22 Type 2 diabetes mellitus with diabetic chronic kidney disease; E11.51 Type 2 diabetes mellitus with diabetic peripheral angiopathy without gangrene; F17.210 Nicotine dependence, cigarettes, uncomplicated; Z98.49 Cataract extraction status, unspecified eye; F10.10 Alcohol abuse, uncomplicated; Z98.890 Other specified postprocedural states; Z90.49 Acquired absence of other specified parts of digestive tract; Z79.899 Other long term (current) drug therapy; Z86.73 Personal history of transient ischemic attack (TIA), and cerebral infarction without residual deficits; Z99.81 Dependence on supplemental oxygen; Z86.16 Personal history of COVID-19; Z87.01 Personal history of pneumonia (recurrent); Z88.8 Allergy status to other drugs, medicaments and biological substances
CPT/HCPCS: 0241U; 36415; 71045; 80048; 80053; 83036; 83735; 83880; 85025; 85027; 87070; 87205; 92610; 93005; 93010; 94640; 94664; 94760; 94761; 94762; 96374; 99285-25; A9270; J0696; J1650; J2919; J7030; J7050; J7512